=== PATIENT | male | born 1940 | race Caucasian/White ===

== ENCOUNTER 2016-08-21 08:33 | Day surgery (SDC) | payer MEDICARE, OTHER ==
[~2016-08-21] VITALS: Ht 170.2 cm; Wt 81.8 kg
[~2016-08-21 08:33] MED LIST: ACETAMINOPHEN500 M1 PO; ASPIRIN325 MG PO; BAYER CHEWABLE81 MG PO; CINNAMON500 MG PO; FLOMAX0.4 MG PO; GLUCOPHAGE1000 MG PO; IPRAT-ALBUT 0.5-3 ML UPD; LACTINEX GRANUL1 PCK PO; LIPITOR10 MG PO; MULTI-DAY VITAM1 TAB PO; OMEGA 3 FISH OI1 CAP PO; OXYCODONE HCL5 MG PO; PROTONIX40 MG PO; VITAMIN E400 UNI2 PO
[2016-08-21] MEDS ORDERED: GLIMEPIRIDE4 MG PO (09:07)
[2016-08-21] MEDS ORDERED: FUROSEMIDE20 MG PO (09:08)
[2016-08-21 09:19] VITALS: BP 152/72; Ht 170.2 cm; Wt 81.8 kg
[2016-08-21 09:30] LABS: HEMATOCRIT 39.7 % (42.0-54.0); HEMOGLOBIN 13.7 g/dL (13.5-17.5); MCH 30.5 pg (26.0-34.0); MCHC 34.5 g/dL (31.0-37.0); MCV 88.4 fL (80.0-100.0); MEAN PLATELET VOLUME 9.9 fL (7.4-10.4); RBC 4.49 10x6/uL (4.20-6.10); RDW 12.4 % (11.5-14.5); WBC 4.8 10x3/uL (4.8-10.8)
[2016-08-21 09:59] LABS: ANION GAP 13.7 mmol/L (8-16); CARBON DIOXIDE 26.1 mmol/L (21.0-32.0); CREATININE - SERUM 1.7 mg/dL (0.6-1.3); POTASSIUM - SERUM 4.8 mmol/L (3.5-5.1)
--- NOTE | 2016-08-21 12:13 | NUR ---
ERCP DONE NO STENT NOTED.
--- NOTE | 2016-08-21 12:18 | NUR ---
CONTRACT USED 3ML XRAY TIME 46 SECONDS.
--- NOTE | 2016-08-21 12:24 | NUR ---
DR. BUTLER STATED HE WOULD PUT IN ORDER IF WANTED KUB.
--- NOTE | 2016-08-21 13:34 | NUR ---
1330--IV DC'D, PT UP TO DRESS. SHARMAINE RN
--- NOTE | 2016-08-21 13:42 | NUR ---
1108--DISCHARGE INSTRUCTIONS GIVEN, PT VERBALIZES UNDERSTANDING. PT OFF UNIT VIA BRANDO. SHARMAINE TOWNSEND
--- NOTE | 2016-08-31 10:51 | PRO ---
PATIENT:MAXIMINO ESQUIVEL MEDICAL RECORD: [id number] : 38 LOCATION:D.OPS ADMISSION DATE: 08/21/16 PROCEDURE PERFORMED BY: FRANKLIN BUTLER MD DATE OF PROCEDURE: 08/21/2016 PROCEDURE: ERCP. INDICATION: The patient is a 75-year-old white male status post laparoscopic cholecystectomy complicated by bile duct leak, treated with ERCP with stent placement, who is now for ERCP with stent removal. PREMEDICATION: Taper anesthesia. INSTRUMENT: Olympus video ERCP scope. FINDINGS: The endoscope was passed through the oropharynx to the second portion of the duodenum without difficulty. The esophagus, stomach and duodenum were unremarkable. The major papilla was identified and was normal other than post-sphincterotomy changes. It sat on the side of a large periampullary diverticulum. Interestingly enough, the biliary stent was not present. We scan the belly with fluoroscopy, I did not see it, it must have passed on its own. I went ahead and performed an ERCP/cholangiogram to ensure that his leak had sealed at which it had There are no signs of extravasation at all. I never obtained a pancreatogram. The patient tolerated the procedure well without complications. IMPRESSION: 1. Normal post-cholecystectomy cholangiogram with no evidence of any residual biliary leak. 2. His biliary stent had passed on its own. There was no evidence in the abdomen at all, noted on fluoroscopy. 3. Otherwise, normal ERCP. RECOMMENDATIONS: 1. Discharge to home. 2. Follow up with me as needed. TRANSINT:[id number] Voice Confirmation ID: [id number] DOCUMENT ID: [id number] FRANKLIN BUTLER MD at 1051 CC: MALCOLM ECHEVERRIA MD [id number] DICTATION DATE: 08/21/16 1158 ELECTRONIC RESOURCES LIBRARIAN: 08/21/16 1419 [facility] 08/21/16 [place] [id number]
--- NOTE | 2016-08-31 10:51 | HP ---
PATIENT: MAXIMINO ESQUIVEL MEDICAL RECORD: [id number] ACCOUNT: [id number] LOCATION:LUCIE : 39 ADMISSION DATE: 08/21/16 HISTORY AND PHYSICAL EXAMINATION DATE: 08/21/2016 HISTORY OF PRESENT ILLNESS: The patient is a 75-year-old white male with history of acute cholecystitis status post cholecystectomy back in March of [address] Miramontes, complicated by common bile duct leak, which was treated with an ERCP with stent placement at that time. He is now for ERCP for stent removal. PAST MEDICAL HISTORY: Remarkable for diabetes and coronary artery disease. PAST SURGICAL HISTORY: Remarkable for laparoscopic cholecystectomy and cardiac stent placement. ALLERGIES: VALIUM, LISINOPRIL, METHYLPREDNISOLONE. FAMILY HISTORY: Negative for GI disease. SOCIAL HISTORY: The patient is an ex-smoker. He denies alcohol use. PHYSICAL EXAMINATION: GENERAL: Reveals a well-developed white male in no acute distress. VITAL SIGNS: Stable. He is afebrile. CHEST: Clear. HEART: Regular rate and rhythm. ABDOMEN: Soft, nontender. EXTREMITIES: No edema. IMPRESSION: Common bile duct leak status post laparoscopic cholecystectomy in March 2015, status post repair of the biliary leak, endoscopic retrograde cholangiopancreatography. RECOMMENDATION: ERCP with stent removal. TRANSINT:[id number] Voice Confirmation ID: [id number] DOCUMENT ID: [id number] FRANKLIN BUTLER MD at 1051 CC: [id number] DICTATION DATE: 08/21/16 1137 PRINT CUTTER: 08/21/16 1202 [facility] 08/21/16 [place] [id number]
== END 2016-08-21 13:37 | disposition home or self-care (01) ==
LOC: D.OPS 08:33
PROVIDERS: Anesthesiology
DX: Z90.49 Acquired absence of other specified parts of digestive tract (principal); E11.9 Type 2 diabetes mellitus without complications; I25.10 Atherosclerotic heart disease of native coronary artery without angina pectoris; Z95.5 Presence of coronary angioplasty implant and graft; Z88.8 Allergy status to other drugs, medicaments and biological substances; Z87.891 Personal history of nicotine dependence

== ENCOUNTER → 2016-11-20 10:32 | Outpatient (CLI) | payer MEDICARE, OTHER ==
[2016-08-21 09:19] VITALS: BMI 28.2
[~2016-11-20 10:32] MED LIST changes: +FUROSEMIDE20 MG PO; +GLIMEPIRIDE4 MG PO
== END | disposition home or self-care (01) ==
LOC: D.CT 10:30
DX: R91.1 Solitary pulmonary nodule (principal)

== ENCOUNTER → 2017-10-27 09:28 | Outpatient (CLI) | payer MEDICARE, OTHER ==
[2016-08-21 09:19] VITALS: BMI 28.2
== END | disposition home or self-care (01) ==
LOC: D.CT 09:28
DX: R91.1 Solitary pulmonary nodule (principal)

== ENCOUNTER → 2018-11-04 09:49 | Outpatient (CLI) | payer MEDICARE, OTHER ==
[2016-08-21 09:19] VITALS: BMI 28.2
== END | disposition home or self-care (01) ==
LOC: D.RT 09:49
PROVIDERS: ATTEND Internal Medicine Pulmonary Disease
DX: J44.9 Chronic obstructive pulmonary disease, unspecified (principal)

== ENCOUNTER → 2018-12-14 11:25 | Outpatient (CLI) | payer MEDICARE, OTHER ==
[2016-08-21 09:19] VITALS: BMI 28.2
== END | disposition home or self-care (01) ==
LOC: D.CT 11:25
PROVIDERS: ATTEND Internal Medicine Pulmonary Disease
DX: J18.9 Pneumonia, unspecified organism (principal)

== ENCOUNTER → 2020-02-07 07:59 | Outpatient (CLI) | payer MEDICARE, OTHER ==
[2016-08-21 09:19] VITALS: BMI 28.2
== END | disposition home or self-care (01) ==
LOC: D.CT 12-31 09:30
PROVIDERS: ATTEND Internal Medicine Pulmonary Disease
DX: R91.8 Other nonspecific abnormal finding of lung field (principal)

== ENCOUNTER → 2020-10-11 08:18 | Outpatient (CLI) | payer MEDICARE, OTHER ==
[2016-08-21 09:19] VITALS: BMI 28.2
== END | disposition home or self-care (01) ==
LOC: D.HCCECHO 08:18
PROVIDERS: ATTEND Internal Medicine Cardiovascular Disease
DX: I25.10 Atherosclerotic heart disease of native coronary artery without angina pectoris (principal)

== ENCOUNTER 2021-01-01 16:27 | Inpatient (IN) | payer MEDICARE, OTHER ==
[~2021-01-01] VITALS: Ht 170.2 cm; Wt 73.5 kg
[2021-01-01 18:25] LABS: BASOPHILS 0.7 % (0-2); EOSINOPHILS 1.8 % (0-7); HEMATOCRIT 43.2 % (42.0-54.0); HEMOGLOBIN 14.4 g/dL (13.5-17.5); LYMPHOCYTES 15.7 % (15-50); MCH 29.8 pg (26.0-34.0); MCHC 33.3 g/dL (31.0-37.0); MCV 89.4 fL (80.0-100.0); MEAN PLATELET VOLUME 7.9 fL (7.4-10.4); MONOCYTES 7.1 % (2-11); NEUTROPHILS 74.7 % (40-80); PLATELET COUNT 146 10x3/uL (130-400); RBC 4.83 10x6/uL (4.20-6.10); RDW 14.5 % (11.5-14.5); WBC 5.5 10x3/uL (4.8-10.8)
[2021-01-01 18:34] LABS: CALC OSMOLALITY 294 mosm/kg (275-300); CALCIUM 8.8 mg/dL (8.5-10.1); CARBON DIOXIDE 30.7 mmol/L (21.0-32.0); CHLORIDE - SERUM 104 mmol/L (98-107); CREATININE - SERUM 2.1 mg/dL (0.6-1.3); GLUCOSE 192 mg/dL (74-106); POTASSIUM - SERUM 4.5 mmol/L (3.5-5.1); SODIUM 140 mmol/L (136-145); UREA NITROGEN 42 mg/dL (7-18); eGFR NON AFRICAN AMERICAN 32 mL/min (90-120)
[2021-01-01 18:50] LABS: ALBUMIN 3.7 g/dL (3.4-5.0); ALKALINE PHOSPHATASE 79 U/L (30-120); ALT (SGPT) 16 U/L (10-68); BILIRUBIN - TOTAL 0.79 mg/dL (0.2-1.3); CKMB 1.7 U/L (0.0-3.6); CREATINE KINASE 51 UL (21-232); PROTEIN - SERUM 7.5 g/dL (6.4-8.2); TROPONIN-I < 0.017 ng/mL (0.000-0.060)
--- NOTE | 2021-01-01 19:24 | NUR ---
RECIEVED UP IN BED WITH EYES OPEN ANDTV ON. SPOUSE AND FRIEND AT BEDSIDE. ALERT AND ORIENTED X4. UP AD FRANCESCO. DENIES ANY NEEDS AT THIS TIME.
[2021-01-02] VITALS: BP 105/59
[2021-01-02 04:00] VITALS: BP 118/74
[2021-01-02 07:10] LABS: BASOPHILS 0.9 % (0-2); HEMATOCRIT 39.3 % (42.0-54.0); LYMPHOCYTES 14.5 % (15-50); MCH 29.6 pg (26.0-34.0); MCHC 33.2 g/dL (31.0-37.0); MCV 89.3 fL (80.0-100.0); MEAN PLATELET VOLUME 7.9 fL (7.4-10.4); MONOCYTES 7.6 % (2-11); PLATELET COUNT 127 10x3/uL (130-400); RDW 14.5 % (11.5-14.5); WBC 4.8 10x3/uL (4.8-10.8)
[2021-01-02 07:28] LABS: APTT 29.9 SECONDS (22.8-39.4); INR 1.14 (0.85-1.17); PROTIME 13.6 SECONDS (11.6-15.0)
[2021-01-02 07:40] LABS: ALBUMIN 3.3 g/dL (3.4-5.0); ANION GAP 13.1 mmol/L (8-16); BILIRUBIN - TOTAL 0.8 mg/dL (0.2-1.3); CALCIUM 8.4 mg/dL (8.5-10.1); CARBON DIOXIDE 26.2 mmol/L (21.0-32.0); MAGNESIUM - SERUM 1.9 mg/dL (1.8-2.4); POTASSIUM - SERUM 5.3 mmol/L (3.5-5.1); PROTEIN - SERUM 6.4 g/dL (6.4-8.2)
[2021-01-02 08:00] VITALS: BP 119/66
--- NOTE | 2021-01-02 11:20 | NUR ---
URINE SPECIMEN COLLECTED AND TAKEN TO LAB. WILL MONITOR.
[2021-01-02 11:53] LABS: BILIRUBIN NEGATIVE (NEGATIVE); KETONE NEGATIVE mg/dL (< 1+); NITRITE NEGATIVE (NEGATIVE); UROBILINOGEN NORMAL mg/dL (< 2)
[2021-01-02 11:56] LABS: CREATININE - URINE 30.3 mg/dL (30-125); PRO/CRE RATIO URINE 0.3 mg/g; PROTEIN - URINE 10.5 mg/dL (0.0-11.9)
[2021-01-02 12:00] VITALS: BP 131/75
[2021-01-02 12:58] VITALS: Ht 170.2 cm; Wt 73.5 kg
[2021-01-02 15:58] VITALS: BP 118/66
--- NOTE | 2021-01-02 16:39 | CN ---
PATIENT NAME:MAXIMINO ESQUIVEL MEDICAL RECORD: [id number] : 38 LOCATION:D. D.2115 ADMIT DATE: 01/01/21 ACCOUNT: [id number] CONSULTING PHYSICIAN: EMMANUEL MACKENZIE MD REFERRING PHYSICIAN: RONALDO SMITH MD DATE OF CONSULTATION: 01/02/2021 HISTORY OF PRESENT ILLNESS: The patient is an 80-year-old male with multiple medical problems including atherosclerotic heart disease, history of PCI stent, COPD, hypertension, hyperlipidemia, CHF, nvqqw-ha-wdunmvo renal failure, who noted to have an episode of fall, presyncope-syncope symptoms. I was asked to evaluate from a cardiovascular standpoint. PAST MEDICAL HISTORY: Significant for; 1. Atherosclerotic heart disease. 2. History of PCI/stent. 3. History of presyncope-syncope symptomatology. 4. Xcjmb-jg-urazhdq renal failure. 5. Congestive heart failure. 6. Chronic obstructive pulmonary disease. 7. Abnormal ECG. PHYSICAL EXAMINATION: GENERAL: Pleasant elderly white male sitting in no apparent distress. VITAL SIGNS: Blood pressure 130s/70s, pulse 80s (regular). HEENT: Sclerae are clear; conjunctivae pink. NECK: Supple. No appreciated JVD. HEART: He has got regular rhythm and rate, II/ systolic murmur. LUNGS: Basilar rales bilaterally. ABDOMEN: Benign. EXTREMITIES: Negative for edema. Pneumatic compression bilateral is present. NEUROLOGICAL: Nonfocal. DIAGNOSTIC DATA: EKG, normal sinus rhythm at 76 beats per minute with T-wave inversion anterior leads (new compared to previous ECG of 03/2019). LABORATORY DATA: White blood cell count is 4.8, hemoglobin and hematocrit 13 and 39.3, and platelet count is 127. Sodium is 141, potassium is 5.3, BUN 38, creatinine is 2. His BNP is 4300 (elevated). Troponin 0.017 (negative). MEDICATIONS: Lasix 40 mg IV b.i.d., Flomax 0.8 mg daily, Requip 0.5 mg at bedtime, Lipitor 5 mg daily, Atrovent inhaler, Pulmicort inhaler, ceftriaxone 1 gram IV every 24 hours. REVIEW OF SYSTEMS: Significant for presyncope-syncope symptoms. ASSESSMENT AND PLAN: 1. Atherosclerotic heart disease. 2. History of percutaneous coronary intervention / stent. 3. Congestive heart failure - decompensated. 4. Rupjy-yj-pipidqm renal insufficiency. 5. Presyncope-syncope symptomatology. 6. Abnormal ECG. 7. Benign prostatic hypertrophy. 8. Chronic obstructive pulmonary disease. CONSULT REPORT [id number] MAXIMINO ESQUIVEL PLAN: Continue current medical management at this time. I agree with obtaining an echocardiogram to assess LV function and valvular status. Further recommendations as clinically indicated. Thank you for allowing us to participate in the care of this patient. TRANSINT:[id number] Voice Confirmation ID: [id number] DOCUMENT ID: [id number] EMMANUEL MACKENZIE MD at 1639 CC: [id number] DICTATION DATE: 01/02/21 1237 WELDING MACHINE OPERATOR GAS METAL ARC: 01/02/21 1417 ADM IN [place] [id number] [place] [id number]
[2021-01-02 17:14] LABS: CKMB 1.4 U/L (0.0-3.6); CREATINE KINASE 39 UL (21-232); TROPONIN-I 0.056 ng/mL (0.000-0.060)
[2021-01-02 19:00] VITALS: BP 129/62
--- NOTE | 2021-01-02 19:27 | NUR ---
RECIEVED UP IN BED WITH SPOUSE AT BEDSIDE. A/O X4. UP ASD FRANCESCO TO B/R. DENIUESS ANY NEEDS AT THIS TIME.
[2021-01-03] VITALS: BP 114/61
[2021-01-03 04:00] VITALS: BP 97/61
[2021-01-03 06:45] LABS: BASOPHILS 0.8 % (0-2); EOSINOPHILS 1.6 % (0-7); HEMATOCRIT 40.4 % (42.0-54.0); HEMOGLOBIN 13.6 g/dL (13.5-17.5); LYMPHOCYTES 14.5 % (15-50); MCH 29.7 pg (26.0-34.0); MCHC 33.5 g/dL (31.0-37.0); MCV 88.5 fL (80.0-100.0); MEAN PLATELET VOLUME 9.2 fL (7.4-10.4); MONOCYTES 8.3 % (2-11); NEUTROPHILS 74.8 % (40-80); PLATELET COUNT 118 10x3/uL (130-400); RBC 4.57 10x6/uL (4.20-6.10); RDW 14.3 % (11.5-14.5); WBC 5.5 10x3/uL (4.8-10.8)
[2021-01-03 07:13] LABS: ALBUMIN 3.5 g/dL (3.4-5.0); ANION GAP 13.1 mmol/L (8-16); BILIRUBIN - TOTAL 0.86 mg/dL (0.2-1.3); C-REACTIVE PROTEIN 2.1 mg/dL (0.0-0.9); CALCIUM 8.6 mg/dL (8.5-10.1); CARBON DIOXIDE 27.5 mmol/L (21.0-32.0); MAGNESIUM - SERUM 1.9 mg/dL (1.8-2.4); PHOSPHOROUS 3.8 mg/dL (2.5-4.9); POTASSIUM - SERUM 4.6 mmol/L (3.5-5.1); PROTEIN - SERUM 6.8 g/dL (6.4-8.2)
[2021-01-03 08:00] VITALS: BP 120/64
[2021-01-03 12:00] VITALS: BP 127/82
--- NOTE | 2021-01-03 13:44 | EC ---
PATIENT:MAXIMINO ESQUIVEL DATE OF SERVICE: 01/01/21 SEX: M MEDICAL RECORD: [id number] DATE OF : 39 LOCATION:D. D.211 AGE OF PATIENT: 80 ADMISSION DATE: 01/01/21 REFERRING PHYSICIAN: INTERPRETING PHYSICIAN: EMMANUEL MACKENZIE MD ECHOCARDIOGRAM REPORT ECHO CHARGES 5 ECHO LIMITED Date: 01/02/21 CLINICAL DIAGNOSIS: SYNCOPE, ABNORMAL EKG, HX:CAD, SOB ECHOCARDIOGRAPHIC MEASUREMENTS (adult normal given) AC root (d.<3.7cm) 0 cm LV Septum d (<1.2 cm> 0 cm Valve Excursion 0 cm LV Septum (systole) 0 cm Left Atria (s.<4.0cm> 0 cm LVPW d(<1.2cm) 0 cm RV (d.<2.3cm) 0 cm LVPW (sytole) 0 cm LV diastole(<5.6CM) 0 cm MV E-F(>70mm/sec) 0 cm LV systole 0 cm LVOT Diameter 0 cm MV exc.(>10mm) 0 cm Est.ejection fraction (50-75%) % DOPPLER: LVIT cm/sec A 0 cm/sec E 0 cm/sec LA 0 cm/sec RVSP 51 mmHg LVOT 0 cm/sec AOP1/2T m/s Asc. Ao 0 cm/sec RVOT 0 cm/sec RA 0 cm/sec PA 0 cm/sec AV Gradient Peak 0 mmHg AV Mean 0 mmHg AV Area 0 cm MV Gradient Peak 0 mmHg MV Mean 0 mmHg MV Area cm COMMENTS: Commercial Sewing Instructor: Jeff ECKERTEDGARDO BEBA [employer] Program Associate: Sosa [place] TAPE# Pericardial Effusion N DATE OF SERVICE: CLINICAL INDICATIONS: Syncope, abnormal ECG. INTERPRETATION: Normal left ventricular chamber size and contractile function, ejection fraction of 55% to 60%. FINDINGS: Left atrial chamber appears normal. Right atrial chamber is dilated. Right ventricular chamber dilated with preserved contractile function. Aortic valve, mild thickening and calcification with good cusp excursion. No aortic ECHOCARDIOGRAM REPORT [id number] MAXIMINO ESQUIVEL regurgitation noted. Mitral valve appears normal. Tricuspid valve appears normal with mild tricuspid regurgitation. Tricuspid velocity of 3.2 meters per second, estimated PA pressure is approximately 50 mmHg suggesting moderate pulmonary hypertension. No pericardial effusion visualized. IMPRESSION: 1. Normal left ventricular chamber size and contractile function, ejection fraction 55% to 60%. 2. Mild tricuspid regurgitation with estimated PA pressure of 51 mmHg suggestive of moderate pulmonary hypertension. TRANSINT:[id number] Voice Confirmation ID: [id number] DOCUMENT ID: [id number] EMMANUEL MACKENZIE MD at 1344 CC: [id number] DICTATION DATE: 01/02/21 1614 INSTRUCTOR APPAREL MANUFACTURE: 01/02/21 1839 ADM IN [place] [id number] [place] [address]
[2021-01-03 16:00] VITALS: BP 128/73
[2021-01-03 23:38] VITALS: BP 114/66
[2021-01-04 05:00] VITALS: BP 99/67
[2021-01-04 06:48] LABS: BASOPHILS 0.5 % (0-2); EOSINOPHILS 2.2 % (0-7); HEMATOCRIT 40.8 % (42.0-54.0); HEMOGLOBIN 13.4 g/dL (13.5-17.5); LYMPHOCYTES 13.6 % (15-50); MCH 29.4 pg (26.0-34.0); MCHC 32.8 g/dL (31.0-37.0); MCV 89.9 fL (80.0-100.0); MONOCYTES 9.3 % (2-11); NEUTROPHILS 74.4 % (40-80); RBC 4.54 10x6/uL (4.20-6.10); RDW 14.4 % (11.5-14.5)
[2021-01-04 06:49] LABS: PLATELET COUNT 145 10x3/uL (130-400)
[2021-01-04 07:20] LABS: ALBUMIN 3.4 g/dL (3.4-5.0); BILIRUBIN - TOTAL 1.16 mg/dL (0.2-1.3); CALCIUM 8.4 mg/dL (8.5-10.1); CREATININE - SERUM 1.9 mg/dL (0.6-1.3); MAGNESIUM - SERUM 1.9 mg/dL (1.8-2.4); PHOSPHOROUS 3.5 mg/dL (2.5-4.9); PROTEIN - SERUM 6.5 g/dL (6.4-8.2)
[2021-01-04 07:23] LABS: ANION GAP 12.3 mmol/L (8-16); POTASSIUM - SERUM 5.3 mmol/L (3.5-5.1)
[2021-01-04 07:30] VITALS: BP 119/66
--- NOTE | 2021-01-04 08:00 | NUR ---
LEAVING FOR STRESS TEST BY W/C. WILL CONT. PLAN OF CARE.
--- NOTE | 2021-01-04 09:00 | NUR ---
BACK FROM STRESS TEST. DIET RESUMED.
--- NOTE | 2021-01-04 11:07 | NUR ---
Nutrition Reassessment/Follow-up: Sitting up on side of bed eating breakfast at time of visit this AM. Good appetite/PO intake. Denies N/V/C/D. K+ elevated again today (5.3). Diet changed per renal. Diet: Renal, Low K+, Consistent Carb PO intake: 100% x 6 meals (01/02-01/03) No new wt; last wt: 162# (01/01) Last BM: 01/04 Labs noted: K+ 5.3, BUN 42, Cre 1.9, GFR 36, Glu 141, Ca 8.4, Alb 3.4 Meds noted: Lasix, Florajen, Protonix, Pepcid, Humalog, electrolyte protocol -Nutrition needs, Dx, & goals unchanged since initial assessment. -Monitor labs & wt. -RD will follow up within 5-7 days.
[2021-01-04 12:00] VITALS: BP 141/71
[2021-01-04 14:00] VITALS: BP 117/73
[2021-01-04 23:30] VITALS: BP 112/64
[2021-01-05 05:26] LABS: BASOPHILS 0.7 % (0-2); EOSINOPHILS 2.8 % (0-7); HEMATOCRIT 39.2 % (42.0-54.0); HEMOGLOBIN 13.2 g/dL (13.5-17.5); LYMPHOCYTES 15.2 % (15-50); MCH 29.6 pg (26.0-34.0); MCHC 33.8 g/dL (31.0-37.0); MEAN PLATELET VOLUME 7.9 fL (7.4-10.4); MONOCYTES 10.7 % (2-11); NEUTROPHILS 70.6 % (40-80); PLATELET COUNT 141 10x3/uL (130-400); RBC 4.46 10x6/uL (4.20-6.10); RDW 14.5 % (11.5-14.5); WBC 4.5 10x3/uL (4.8-10.8)
[2021-01-05 05:39] VITALS: BP 115/71
[2021-01-05 05:39] LABS: ALBUMIN 3.4 g/dL (3.4-5.0); ANION GAP 10.5 mmol/L (8-16); BILIRUBIN - TOTAL 1.16 mg/dL (0.2-1.3); CALCIUM 8.6 mg/dL (8.5-10.1); CARBON DIOXIDE 29.1 mmol/L (21.0-32.0); CREATININE - SERUM 1.8 mg/dL (0.6-1.3); MAGNESIUM - SERUM 1.9 mg/dL (1.8-2.4); PHOSPHOROUS 3.9 mg/dL (2.5-4.9); POTASSIUM - SERUM 4.6 mmol/L (3.5-5.1); PROTEIN - SERUM 6.9 g/dL (6.4-8.2)
[2021-01-05 05:44] LABS: MCV 87.8 fL (80.0-100.0)
[2021-01-05 05:49] LABS: APTT 34.9 SECONDS (22.8-39.4); INR 1.28 (0.85-1.17); PROTIME 14.8 SECONDS (11.6-15.0)
[2021-01-05 07:16] LABS: ANA REFLEX - DIRECT Negative (Negative)
[2021-01-05 07:42] VITALS: BP 111/61
--- NOTE | 2021-01-05 10:26 | NUR ---
AMBULATES WITH PT ASSIST.
[2021-01-05 11:02] VITALS: BP 108/66
[2021-01-05 15:12] LABS: ANCA - ANTIMYELOPEROXIDASE <9.0 U/mL (0.0-9.0); ANCA - ANTIPROTEINASE 3 <3.5 U/mL (0.0-3.5); ANCA - ATYPICAL <1:20 titer (Neg:<1:20); ANCA - CYTOPLASMIC <1:20 titer (Neg:<1:20); ANCA - PERINUCLEAR <1:20 titer (Neg:<1:20)
[2021-01-05 16:03] VITALS: BP 114/83
[2021-01-05 21:06] VITALS: BP 111/62
[2021-01-06 02:09] VITALS: BP 115/68
[2021-01-06 06:03] LABS: BASOPHILS 0.6 % (0-2); EOSINOPHILS 2.5 % (0-7); HEMOGLOBIN 13.3 g/dL (13.5-17.5); LYMPHOCYTES 12.7 % (15-50); MCH 29.5 pg (26.0-34.0); MCHC 33.3 g/dL (31.0-37.0); MCV 88.7 fL (80.0-100.0); MEAN PLATELET VOLUME 7.9 fL (7.4-10.4); MONOCYTES 8.9 % (2-11); NEUTROPHILS 75.3 % (40-80); PLATELET COUNT 146 10x3/uL (130-400); RBC 4.51 10x6/uL (4.20-6.10); RDW 14.3 % (11.5-14.5); WBC 5.3 10x3/uL (4.8-10.8)
[2021-01-06 06:47] VITALS: BP 111/66
[2021-01-06 06:52] LABS: ALBUMIN 3.4 g/dL (3.4-5.0); ANION GAP 12.1 mmol/L (8-16); BILIRUBIN - TOTAL 1.3 mg/dL (0.2-1.3); CALCIUM 8.7 mg/dL (8.5-10.1); CARBON DIOXIDE 27.8 mmol/L (21.0-32.0); CREATININE - SERUM 1.8 mg/dL (0.6-1.3); MAGNESIUM - SERUM 1.9 mg/dL (1.8-2.4); PHOSPHOROUS 3.5 mg/dL (2.5-4.9); POTASSIUM - SERUM 4.9 mmol/L (3.5-5.1); PROTEIN - SERUM 6.9 g/dL (6.4-8.2)
[2021-01-06 09:11] VITALS: BP 122/83
--- NOTE | 2021-01-06 09:52 | NUR ---
WALKED 100 FEET HOLDING IV POLE HALF WAY THRU THE WALK PATIENT 02 DROPPED TO 84
[2021-01-06] MEDS ORDERED: PERFOROMIS20 MCG/21 INH (10:14)
[2021-01-06] MEDS ORDERED: ALBUTEROL2.5 MG/3 M UPD (10:15)
[2021-01-06] MEDS ORDERED: TESSALON PERLE100 MG PO (10:15)
[2021-01-06] MEDS ORDERED: REQUIP0.25 MG PO (10:15)
[2021-01-06] MEDS ORDERED: FLORAJEN DIGES1 EACH PO (10:16)
[2021-01-06] MEDS ORDERED: MUCINEX600 MG PO (10:16)
[2021-01-06] MEDS ORDERED: SINGULAIR10 MG PO (10:16)
[2021-01-06] MEDS ORDERED: PULMICORT0.5 MG/21 UPD (10:16)
[2021-01-06] MEDS ORDERED: FLUTICASONE PRO16 GM NASAL (10:16)
[2021-01-06] MEDS ORDERED: MUCINEX DM ER1 EAC1 PO (10:16)
[2021-01-06] MEDS ORDERED: AVODART0.5 MG PO (10:17)
[2021-01-06] MEDS ORDERED: VIBRAMYCIN 100100 MG PO (10:17)
[2021-01-06] MEDS ORDERED: PEPCID PO (10:18)
--- NOTE | 2021-01-06 11:45 | NUR ---
PROVIDED VERBAL AND WRITTEN DISCHARGE TEACHING TO PT AND PT'S SPOUSE, BOTH VERBALIZED UNDERSTANDING REGARDING TEACHING. D/C TELEMETRY AND TAKEN TO INSEMINATOR. PT WAITING ON RIDE WILL CALL WHEN READY FOR WHEELCHAIR.
--- NOTE | 2021-01-06 12:53 | NUR ---
PT LEFT UNIT VIA WHEELCHAIR, WITH ALL BELONGINGS. PROVIDED PT WITH DOXYCLINE FOR TOMORROW.
--- NOTE | 2021-01-06 18:44 | MORECARE ---
CASE MANAGEMENT DISCHARGE SUMMARY PATIENT: MAXIMNIO ESQUIVEL UNIT: [id number] ADM DATE: 01/01/21 AGE: 80 : 39 SEX: M ROOM/BED: D.2115 AUTHOR: MICHELE MATOS PHYSICIAN: REFERRING PHYSICIAN: RONALDO SMITH MD DATE OF SERVICE: 01/06/21 Case Management Discharge Planning Summary COMMENTS ENTERED DATE: 01/06/21 18:42 CT COMMENT TYPE: Discharge Planning REVIEWER: Mandeep Colmenares CM met with patient to complete DC plan and to evaluate needs. Patient lives independently with his spouse, Reba Esquivel, . Patient stated that his home is safe and has electricity and running water. Patient stated that he is able to manage entering and moving about within his home without difficulty. Patient stated that he has no problems paying for medications and he fills his medications at [facility]. Patient stated that his primary care physician is Dr. Dior. At discharge, the patient plans to return home and feels this is a safe discharge. CM discussed availability of home health, rehab services, and medical equipment. Patient declined HHS, SNF, IPR, and DME. Patient stated that he has home oxygen through [facility]. Patient voiced no other needs at this time and is satisfied with DC plan. Transportation provider at discharge will be with his daughter. DC IMM delivered, explained, signed by the patient, and placed in chart. Signed form also left with the patient. CM will continue to follow and will assist as needed with dc plans/needs. DCP REVIEW SUMMARY ANTICIPATED D/C DATE: 01/06/2021 EXPECTED LOS : 5 CASE STATUS: DCP Initiated INITIAL REVIEW: 01/01/2021 INITIAL REVIEWER: Mandeep Colmenares FINAL DISCHARGE DISPOSITION: : FINAL REVIEWER: FINAL REVIEW DATE: DCP Focus Questions & Answers DCP Evaluation QUESTION: ANSWER Patient and/or caregiver agree upon recommended discharge plan? : Yes Family / Caregiver's ability to cope with chronic illness: : a. Adequate (ability to meet patient's medical needs, ensures patient attends medical appts.) Patient's current cognitive status: : *Oriented to person, place, situation, time and present Patient's ability to cope with chronic illness : d. No chronic illness Patient gives permission to discuss discharge plans with: (name, relationship and number) : spouse, Reba Esquivel, Does the patient have the ability to pay for or attain post discharge needs / services? : Yes Functional screen assessment: : Basic needs can adequately be met by self Family / Caregiver's ability to cope with chronic illness: : a. Adequate (ability to meet patient's medical needs, ensures patient attends medical appts.) Physical Status: : Independent with ADL's Equipment needed for post hospitalization: : None Is there a likelihood that the patient will require additional services to return to the preadmission environment? : No Living Arrangements: : Home with Spouse/Significant Other Patient with capacity for self-care or can be cared for in same environment as prior to hospitalization? : Yes Baseline cognitive status: : *Oriented to person, place, situation, time and present Physical environment modification needed / anticipated for discharge: : No Medication Management: : Patient states can read and understand medication labels Medication Management: : Patient states can afford medications Pharmacy name(s): : [facility] Does Patient have transportation to get home and to follow-up medical appointments when discharged from the hospital? : Yes Would patient like to participate in any Care Coordination programs (if applicable): : Not applicable Does the patient have electricity at home? : Yes Does the patient have running water in their house? : Yes Equipment in use: : Home Oxygen with Nasal Cannula Equipment agency name and contact information: : [facility] Mental health screen: : No mental health history DCP Re-evaluation QUESTION: ANSWER Would patient like to participate in any Care Coordination programs (if applicable): : Not applicable PATIENT: MAXIMINO ESQUIVEL ENCOUNTER: [id number] MEDICAL RECORD#: [id number] ADMISSION DATE: 01/01/2021 DISCHARGE DATE: 01/06/2021 ATTENDING MD: RONALDO SANDERSON : AGE: 80 MARITAL STATUS: M DC PLAN ID: [id number] FACILITY: [facility] PRINTED ON: 01/06/21 18:44 CT All edits/amendments must be made on the electronic document DICTATION DATE: 01/06/211843 HYDRAULIC RIVETER: DONYA 01/06/211843 RPT#: [id number] DC DATE:01/06/21 STATUS: DIS IN [facility] [address] [place] [address] END OF REPORT
--- NOTE | 2021-01-07 17:50 | MORECARE ---
CASE MANAGEMENT DISCHARGE SUMMARY PATIENT: MAXIMINO ESQUIVEL UNIT: [id number] ADM DATE: 01/01/21 AGE: 80 : 39 SEX: M ROOM/BED: D.2115 AUTHOR: MICHELE MATOS PHYSICIAN: REFERRING PHYSICIAN: RONALDO SMITH MD DATE OF SERVICE: 01/07/21 Case Management Discharge Planning Summary COMMENTS ENTERED DATE: 01/06/21 18:42 CT COMMENT TYPE: Discharge Planning REVIEWER: Mandeep Colmenares CM met with patient to complete DC plan and to evaluate needs. Patient lives independently with his spouse, Reba Esquivel, . Patient stated that his home is safe and has electricity and running water. Patient stated that he is able to manage entering and moving about within his home without difficulty. Patient stated that he has no problems paying for medications and he fills his medications at [facility]. Patient stated that his primary care physician is Dr. Dior. At discharge, the patient plans to return home and feels this is a safe discharge. CM discussed availability of home health, rehab services, and medical equipment. Patient declined HHS, SNF, IPR, and DME. Patient stated that he has home oxygen through [facility]. Patient voiced no other needs at this time and is satisfied with DC plan. Transportation provider at discharge will be with his daughter. DC IMM delivered, explained, signed by the patient, and placed in chart. Signed form also left with the patient. CM will continue to follow and will assist as needed with dc plans/needs. DCP REVIEW SUMMARY ANTICIPATED D/C DATE: 01/06/2021 EXPECTED LOS : 5 CASE STATUS: DCP Complete INITIAL REVIEW: 01/01/2021 INITIAL REVIEWER: Mandeep Colmenares FINAL DISCHARGE DISPOSITION: : FINAL REVIEWER: FINAL REVIEW DATE: DCP Focus Questions & Answers DCP Evaluation QUESTION: ANSWER Family / Caregiver's ability to cope with chronic illness: : a. Adequate (ability to meet patient's medical needs, ensures patient attends medical appts.) Patient gives permission to discuss discharge plans with: (name, relationship and number) : spouse, Reba Esquivel, Patient's ability to cope with chronic illness : d. No chronic illness Patient's current cognitive status: : *Oriented to person, place, situation, time and present Patient and/or caregiver agree upon recommended discharge plan? : Yes Physical Status: : Independent with ADL's Family / Caregiver's ability to cope with chronic illness: : a. Adequate (ability to meet patient's medical needs, ensures patient attends medical appts.) Functional screen assessment: : Basic needs can adequately be met by self Does the patient have the ability to pay for or attain post discharge needs / services? : Yes Living Arrangements: : Home with Spouse/Significant Other Is there a likelihood that the patient will require additional services to return to the preadmission environment? : No Equipment needed for post hospitalization: : None Baseline cognitive status: : *Oriented to person, place, situation, time and present Patient with capacity for self-care or can be cared for in same environment as prior to hospitalization? : Yes Physical environment modification needed / anticipated for discharge: : No Medication Management: : Patient states can afford medications Medication Management: : Patient states can read and understand medication labels Pharmacy name(s): : [facility] Does Patient have transportation to get home and to follow-up medical appointments when discharged from the hospital? : Yes Would patient like to participate in any Care Coordination programs (if applicable): : Not applicable Does the patient have electricity at home? : Yes Does the patient have running water in their house? : Yes Equipment in use: : Home Oxygen with Nasal Cannula Equipment agency name and contact information: : [facility] Mental health screen: : No mental health history DCP Re-evaluation QUESTION: ANSWER Would patient like to participate in any Care Coordination programs (if applicable): : Not applicable PATIENT: MAXIMINO ESQUIVEL ENCOUNTER: [id number] MEDICAL RECORD#: [id number] ADMISSION DATE: 01/01/2021 DISCHARGE DATE: 01/06/2021 ATTENDING MD: RONALDO SANDERSON : AGE: 80 MARITAL STATUS: M DC PLAN ID: [id number] FACILITY: [facility] PRINTED ON: 01/07/21 17:50 CT All edits/amendments must be made on the electronic document DICTATION DATE: 01/07/211749 SENIOR INFORMATION DEVELOPER: DONYA 01/07/211749 RPT#: [id number] DC DATE:01/06/21 STATUS: DIS IN [facility] [address] [place] [address] END OF REPORT
[2021-01-08 10:08] LABS: ANTI-GLOMERULAR BASMENT MEMBRN 2 units (0-20)
[2021-01-09 03:08] LABS: IMMUNOGLOBULIN E 13 IU/mL (6-495)
== END 2021-01-06 13:05 | disposition home or self-care (01) | DRG 922 ==
LOC: D.M2 16:27
PROVIDERS: Internal Medicine Nephrology; Internal Medicine Pulmonary Disease; ADMIT Family Medicine; ATTEND Emergency Medicine
DX: T79.8XXA Other early complications of trauma, initial encounter (principal); J96.21 Acute and chronic respiratory failure with hypoxia; N17.9 Acute kidney failure, unspecified; I13.0 Hypertensive heart and chronic kidney disease with heart failure and stage 1 through stage 4 chronic kidney disease, or unspecified chronic kidney disease; J44.1 Chronic obstructive pulmonary disease with (acute) exacerbation; J44.0 Chronic obstructive pulmonary disease with (acute) lower respiratory infection; S27.321A Contusion of lung, unilateral, initial encounter; R55 Syncope and collapse; I25.10 Atherosclerotic heart disease of native coronary artery without angina pectoris; I27.20 Pulmonary hypertension, unspecified; E11.22 Type 2 diabetes mellitus with diabetic chronic kidney disease; N18.30 Chronic kidney disease, stage 3 unspecified; W19.XXXA Unspecified fall, initial encounter; R91.1 Solitary pulmonary nodule; J30.9 Allergic rhinitis, unspecified; E87.5 Hyperkalemia; E78.5 Hyperlipidemia, unspecified; N40.0 Benign prostatic hyperplasia without lower urinary tract symptoms; D63.1 Anemia in chronic kidney disease; Z87.891 Personal history of nicotine dependence; I50.9 Heart failure, unspecified